=== PATIENT | female | born 1940 | race Caucasian/White ===

== ENCOUNTER 2019-03-01 14:41 | Emergency (ER) | payer MEDICARE, OTHER, MEDICAID ==
[2019-03-01] MEDS: ACETAMINOPHEN 325 MG TAB PO (15:20)
[2019-03-01] MEDS: NICARDipine HCL 30 MG CAPSULE PO (15:45)
== END 2019-03-01 16:58 | disposition home or self-care (01) ==
LOC: E/R 14:41
DX: I10 Essential (primary) hypertension (principal)
CPT/HCPCS: 70450; 99284-25